=== PATIENT | female | born 1955 | race Caucasian/White ===

== ENCOUNTER 2016-09-10 10:34 | Emergency (ER) | payer SELFPAY ==
[~2016-09-10] VITALS: Ht 167.6 cm; Wt 96.0 kg
[2016-09-10 10:40] VITALS: Ht 167.6 cm; Wt 96.0 kg
== END 2016-09-10 11:39 | disposition left against medical advice (07) ==
LOC: E/R 10:34 → EEVIPCON 10:34 → E/R 11:39
DX: Z53.21 Procedure and treatment not carried out due to patient leaving prior to being seen by health care provider (principal)